=== PATIENT | female | born 1990 | race Caucasian/White ===

== ENCOUNTER 2019-06-14 03:07 | Emergency (ER) | payer OTHER | END 2019-06-14 06:22 | disposition home or self-care (01) | LOC: JER 03:07 ==

== ENCOUNTER 2023-02-25 07:23 | Emergency (ER) | payer OTHER ==
[2023-02-25 07:30] VITALS: BP 147/105; PULSE 83; RESP 18; TEMP 99.1; BMI 31.8
[2023-02-25] MEDS ORDERED: morphine CARPU-JECT 2 MG/1 ML DISP.SYRIN IVPUSH ONE (08:01)
[2023-02-25] MEDS ORDERED: ONDANSETRON 4 MG/2 ML VIAL IVPUSH ONE (08:01)
[2023-02-25] MEDS ORDERED: ONDANSETRON 4 MG/2 ML VIAL ONE (08:25)
[2023-02-25 08:41] LABS: POTASSIUM 4.2 mmol/L (3.5-5.1)
[2023-02-25 08:43] LABS: CALCIUM 8.9 mg/dL (8.5-10.1)
[2023-02-25] MEDS ORDERED: CLINDAMYCIN 600MG PREMIX IVPB 600 MG/50 ML BAG IVPB ONE (08:43)
[2023-02-25] MEDS ORDERED: KETOROLAC TROMETHAMINE 15 MG/ML VIAL IVPUSH ONE (08:43)
[2023-02-25 08:47] LABS: CREATININE 0.7 mg/dL (0.55-1.3)
[2023-02-25 08:48] LABS: BILIRUBIN,TOTAL 0.7 mg/dL (0.2-1); TOT PROT 7.9 g/dl (6.4-8.2)
[2023-02-25] MEDS ORDERED: KETOROLAC TROMETHAMINE 15 MG/ML VIAL ONE (08:48)
[2023-02-25 09:58] LABS: BASO % 0.4 % (0-2.0); EOS % 0.3 % (0-4.5); HEMOGLOBIN 13.6 GM/dL (10.7-15.3); LYMPH % 11.4 % (8-40); MCH 32.7 pg (25.7-33.7); MCHC 34.9 g/dl (32.0-36.0); MEAN CELL VOLUME 93.7 fl (80-96); MEAN PLT VOLUME 8.6 fl (7.5-11.1); MONO % 7.6 % (3.8-10.2); NEUT % 80.3 % (42.8-82.8); PLATELET COUNT 251 10^3/uL (134-434); RBC 4.16 M/mm3 (3.60-5.2); RDW 12.6 % (11.6-15.6); WHITE BLOOD COUNT 8.5 K/mm3 (4.0-10.0)
[2023-02-25] MEDS ORDERED: ACETAMINOPHEN 1000 MG/100 ML BAG IVPB ONE (10:56)
[2023-02-25] MEDS ORDERED: ACETAMINOPHEN INJECTION 100 ML IVPB ONE (11:08)
[2023-02-25] MEDS ORDERED: oxyCODONE HCL 5 MG TABLET PO ONE (11:43)
[2023-02-25] MEDS ORDERED: oxyCODONE HCL 5 MG TABLET ONE (12:18)
== END 2023-02-25 13:13 | disposition home or self-care (01) ==
LOC: JER 07:23
PROC: 3E03329 Introduction of Other Anti-infective into Peripheral Vein, Percutaneous Approach (ICD-10-PCS; principal; 2023-02-25)
PROC: 3E033NZ Introduction of Analgesics, Hypnotics, Sedatives into Peripheral Vein, Percutaneous Approach (ICD-10-PCS; 2023-02-25)
PROC: 3E0333Z Introduction of Anti-inflammatory into Peripheral Vein, Percutaneous Approach (ICD-10-PCS; 2023-02-25)
PROC: 3E033GC Introduction of Other Therapeutic Substance into Peripheral Vein, Percutaneous Approach (ICD-10-PCS; 2023-02-25)
PROC: 3E033GC Introduction of Other Therapeutic Substance into Peripheral Vein, Percutaneous Approach (ICD-10-PCS; 2023-02-25)
DX: S09.93XA Unspecified injury of face, initial encounter (principal); R22.0 Localized swelling, mass and lump, head; R50.9 Fever, unspecified; R61 Generalized hyperhidrosis; K08.89 Other specified disorders of teeth and supporting structures; R11.0 Nausea; X58.XXXA Exposure to other specified factors, initial encounter; Z20.822 Contact with and (suspected) exposure to COVID-19
CPT/HCPCS: 36415; 70487-TC; 80053; 84703; 85025; 85651; 99285-25; C9803-CS; Q9967; U0003; U0005